=== PATIENT | male | born 1960 | race Caucasian/White ===

== ENCOUNTER 2017-10-03 01:06 | Inpatient (IN) | payer MEDICARE, MEDICAID ==
[2017-10-03] VITALS (13 sets, daily range): BP systolic 110–140; BP diastolic 72–116
[~2017-10-03] VITALS: Ht 172.7 cm; Wt 97.3 kg
[2017-10-03] MEDS ORDERED: fluconazole 100mg tablet PO ONE (01:25)
[2017-10-03] MEDS ORDERED: normal saline 1000ml 1,000 ML IV ONE (01:35)
[2017-10-03 02:11] LABS: BASOPHILS % (AUTO) 0.4 % (0-1); EOSINOPHILS # (AUTO) 0.1 X10'3 (0-0.9); EOSINOPHILS % (AUTO) 0.9 % (0-6); HEMOGLOBIN 12.6 g/dl (14.0-17.9); LYMPHOCYTES # (AUTO) 1.3 X10'3 (1.1-4.8); LYMPHOCYTES % (AUTO) 13.1 % (21-51); MEAN CORPUSCULAR HEMOGLOBIN 30.6 PG (27.0-31.0); MEAN CORPUSCULAR HGB CONC 33.2 % (33.0-36.5); MEAN CORPUSCULAR VOLUME 92.2 FL (78-98); MEAN PLATELET VOLUME 8.1 FL (7.4-10.4); MONOCYTES # (AUTO) 1.1 X10'3 (0-0.9); NEUTROPHILS # (AUTO) 7.2 X10'3 (1.8-7.7); NEUTROPHILS % (AUTO) 74.6 % (42-75); PLATELET COUNT 242 X10'3 (140-440); RED BLOOD COUNT 4.12 X10'6 (4.70-6.10); RED CELL DISTRIBUTION WIDTH 18.1 % (11.5-14.5); WHITE BLOOD COUNT 9.7 X10'3 (4.5-11.0)
[2017-10-03 02:13] LABS: ALANINE AMINOTRANSFERASE 66 U/L (12-78); ALBUMIN 3.2 G/DL (3.4-5.0); ALBUMIN/GLOBULIN RATIO 0.9 (1.1-1.5); ALKALINE PHOSPHATASE 104 IU/L (46-116); ANION GAP 6 (8-16); ASPARTATE AMINO TRANSFERASE 66 U/L (10-37); BILIRUBIN,TOTAL 1.9 MG/DL (0.1-1.0); BLOOD UREA NITROGEN 26 MG/DL (7-18); BUN/CREATININE RATIO 21.7 (5.4-32.0); CALCIUM 9.1 MG/DL (8.5-10.1); CHLORIDE 96 MMOL/L (99-107); GLUCOSE 101 MG/DL (70-104); POTASSIUM 3.7 MMOL/L (3.5-5.1); SODIUM 137 MMOL/L (135-145); TOTAL CARBON DIOXIDE 34.7 MMOL/L (24-32); TOTAL PROTEIN 6.8 G/DL (6.4-8.2); eGFR 62 ML/MIN
[2017-10-03 02:22] LABS: ETHANOL < 0.010 GM/DL (0.0-0.010)
[2017-10-03 02:24] LABS: ACETAMINOPHEN < 2.0 UG/ML (10-30)
[2017-10-03] MEDS ORDERED: CefTRIAXone 1000mg IM Kit (w/lidocaine diluent) IM ONE (03:40)
[2017-10-03] MEDS ORDERED: ASPI-1264 PO (06:43)
[2017-10-03] MEDS: pantoprazole 40mg Tablet.DR PO SCH (06:48)
[2017-10-03] MEDS: ceFAZolin 1GM/D5W- ADD-VANTAGE 50 ML IV SCH ×2 (07:33→15:49)
[2017-10-03] MEDS: heparin, porcine 5000 units/ml vial SQ SCH ×2 (07:35→19:26)
[2017-10-03 08:17] LABS: URINE AMPHETAMINE SCREEN NEGATIVE (Neg); URINE BARBITUATE SCREEN NEGATIVE (Neg); URINE BENZODIAZEPINES SCREEN NEGATIVE (Neg); URINE CANNABINOID SCREEN POSITIVE (Neg); URINE COCAINE SCREEN NEGATIVE (Neg); URINE METHADONE SCREEN NEGATIVE (Neg); URINE OPIATE SCREEN NEGATIVE (Neg); URINE PHENCYCLIDINE SCREEN NEGATIVE (Neg)
[2017-10-03 08:36] LABS: CLARITY,URINE CLEAR (Clear); COLOR,URINE YELLOW (Yellow); GLUCOSE, URINE NEGATIVE (Neg); KETONES,URINE NEGATIVE (Neg); LEUKOCYTE ESTERASE ,URINE NEGATIVE (Neg); NITRITES, URINE NEGATIVE (Neg); OCCULT BLOOD,URINE NEGATIVE (Neg); PH,URINE 5.5 (4.8-8.0); PROTEIN,URINE 30 mg/dl (Neg); UROBILINOGEN,URINE 0.2 E.U/dL (0.2-1.0)
[2017-10-03 08:41] LABS: UA COLLECTION TYPE URINAL
[2017-10-03 08:42] LABS: BACTERIA,URINE NONE SEEN /HPF (Neg); MUCUS STRANDS FEW /LPF (Neg); RBC,URINE NONE SEEN /HPF (0-2); SQUAMOUS EPITHELIAL CELL,UR FEW /LPF (FEW); WBC,URINE 0-4 /HPF (0-4)
[2017-10-03] MEDS ORDERED: LORazepam 0.5 MG tablet PO PRN (09:45)
[2017-10-03] MEDS ORDERED: digoxin 250mcg/ml 2ml ampule IV ONE (13:40)
[2017-10-03] MEDS ORDERED: digoxin 250mcg/ml 2ml ampule ONE (14:00)
[2017-10-03] MEDS ORDERED: diltiazem CD 120mg capsule (once-daily) PO STA (15:29)
[2017-10-03] MEDS ORDERED: HYDROcodone/acetaminophen 5mg/325mg tablet PO PRN (17:40)
[2017-10-03] MEDS ORDERED: diltiazem 5mg/ml 5ml inj. IV ONE ×2 (17:40→18:50)
[2017-10-03] MEDS ORDERED: diltiazem-NS 100mg/100ml 100 ML IV SCH (20:00)
[2017-10-03] MEDS ORDERED: furosemide 20 MG/2 ML vial IV ONE (22:05)
[2017-10-03] MEDS: ALPRAZolam 0.25mg tablet PO PRN (23:33)
[2017-10-04] VITALS (21 sets, daily range): BP systolic 90–153; BP diastolic 42–95
[2017-10-04] MEDS: ceFAZolin 1GM/D5W- ADD-VANTAGE 50 ML IV SCH ×3 (00:18→15:45)
[2017-10-04] MEDS ORDERED: metoprolol tartrate 50mg tablet PO ONE (02:30)
[2017-10-04] MEDS: heparin, porcine 5000 units/ml vial SQ SCH ×2 (07:08→20:48)
[2017-10-04] MEDS: metoprolol tartrate 25mg tablet PO SCH ×2 (07:08→20:47)
[2017-10-04] MEDS: pantoprazole 40mg Tablet.DR PO SCH (07:09)
[2017-10-04] MEDS ORDERED: digoxin 250mcg/ml 2ml ampule IV ONE (11:00)
[2017-10-04] MEDS ORDERED: magnesium 4gm in 100ml NS 100 ML IV ONE ×2 (11:40→16:45)
[2017-10-04] MEDS: furosemide 40mg/4ml inj IV SCH ×2 (12:24→20:47)
[2017-10-04] MEDS: potassium Cl 20 mEq SR tablet PO SCH ×2 (12:24→16:44)
[2017-10-04 13:29] LABS: ALBUMIN 2.8 G/DL (3.4-5.0); ANION GAP 5 (8-16); BLOOD UREA NITROGEN 28 MG/DL (7-18); BUN/CREATININE RATIO 20.4 (5.4-32.0); CALCIUM 8.8 MG/DL (8.5-10.1); CHLORIDE 96 MMOL/L (99-107); CREATININE 1.37 MG/DL (0.60-1.10); GLUCOSE 91 MG/DL (70-104); POTASSIUM 3.5 MMOL/L (3.5-5.1); SODIUM 132 MMOL/L (135-145); TOTAL CARBON DIOXIDE 31.2 MMOL/L (24-32); eGFR 54 ML/MIN
[2017-10-04] MEDS ORDERED: nystatin 15 GM powder TP SCH (16:45)
[2017-10-04] MEDS: nystatin 15 GM powder TP SCH (20:00)
[2017-10-04] MEDS: lactobacillus rhamnosus 10,000 MMU CELLS/CAPSULE PO SCH (20:47)
[2017-10-04] MEDS: ALPRAZolam 0.25mg tablet PO PRN (22:46)
[2017-10-05] MEDS: ceFAZolin 1GM/D5W- ADD-VANTAGE 50 ML IV SCH ×2 (00:20→07:53)
[2017-10-05 02:00] VITALS: BP 108/86
[2017-10-05 07:00] VITALS: BP 125/77
[2017-10-05] MEDS: heparin, porcine 5000 units/ml vial SQ SCH (07:53)
[2017-10-05] MEDS: lactobacillus rhamnosus 10,000 MMU CELLS/CAPSULE PO SCH (07:53)
[2017-10-05] MEDS: pantoprazole 40mg Tablet.DR PO SCH (07:54)
[2017-10-05] MEDS: nystatin 15 GM powder TP SCH (07:54)
[2017-10-05] MEDS ORDERED: carvedilol 6.25mg tablet PO SCH (08:00)
[2017-10-05] MEDS: furosemide 40mg/4ml inj IV SCH (08:07)
[2017-10-05] MEDS: potassium Cl 20 mEq SR tablet PO SCH (09:19)
[2017-10-05 11:00] VITALS: BP 111/65
[2017-10-05] MEDS ORDERED: POTA8TAB3 PO (13:00)
[2017-10-05] MEDS ORDERED: CEPH250T PO (13:00)
[2017-10-05] MEDS ORDERED: CARV6.253 PO (13:00)
[2017-10-05] MEDS ORDERED: LISI2.5T2 PO (13:00)
[2017-10-05] MEDS ORDERED: FURO-150 PO (13:00)
[2017-10-06] MEDS ORDERED: lisinopril 2.5mg tablet PO SCH (08:00)
== END 2017-10-05 15:44 | disposition home or self-care (01) | DRG 727 ==
LOC: ER 01:06 → ED HOLD 05:57 → SUR 3N 12:51 → PCU 3S 18:13
PROVIDERS: ADMIT Family Medicine; ATTEND Internal Medicine
DX: N49.2 Inflammatory disorders of scrotum (principal); I50.21 Acute systolic (congestive) heart failure; I47.2 Ventricular tachycardia; R45.851 Suicidal ideations; E87.1 Hypo-osmolality and hyponatremia; K73.9 Chronic hepatitis, unspecified; I48.91 Unspecified atrial fibrillation; F32.9 Major depressive disorder, single episode, unspecified; E86.0 Dehydration; F15.90 Other stimulant use, unspecified, uncomplicated; F17.210 Nicotine dependence, cigarettes, uncomplicated; Z59.0 Homelessness; Z88.8 Allergy status to other drugs, medicaments and biological substances; Z56.0 Unemployment, unspecified
CPT/HCPCS: 36415; 76870; 80048; 80053; 80162; 80178; 80305; 80320; 80329; 81001; 83735; 83880; 84443; 85025; 87070; 93306; J0690; J0696; J1160; J1644; J1940; J3475; J3490; J7030